=== PATIENT | male | born 1945 | race Caucasian/White ===

== ENCOUNTER 2018-11-28 12:54 | Inpatient (IN) | payer MEDICARE, MEDICAID ==
[~2018-11-28] VITALS: Ht 185.4 cm; Wt 96.7 kg
[2018-11-28 16:47] VITALS: BP 137/86
[2018-11-28] MEDS ORDERED: CARD120T4 PO (17:36)
[2018-11-28] MEDS ORDERED: TOPR50TA PO (17:36)
[2018-11-28] MEDS ORDERED: LEVO100T54 PO (17:36)
[2018-11-28] MEDS ORDERED: ASPI81CH33 PO (17:36)
[2018-11-28] MEDS ORDERED: METO5INJ15 IV (17:36)
[2018-11-28] MEDS ORDERED: FURO20VL IV (17:36)
[2018-11-28] MEDS ORDERED: [UNRECOGNIZED DRUG - CODE] IV (17:36)
[2018-11-28 17:48] LABS: BASO # 0.1 10^3/uL (0.0-0.2); BASO % 0.7 % (0.0-1.0); EOS # 0.1 10^3/uL (0.0-0.50); EOS % 1.1 % (0.0-3.0); HEMATOCRIT 41.4 % (42.0-52.0); HEMOGLOBIN 13.8 g/dl (13.5-17.5); LYMPH # 1.7 10^3/uL (1.5-4.5); LYMPH % 20.8 % (24.0-44.0); MEAN CORPUSCULAR HEMOGLOBIN 34.1 pg (27.0-33.0); MEAN CORPUSCULAR HGB CONC 33.3 g/dl (32.0-36.5); MEAN CORPUSCULAR VOLUME 102.2 fl (80.0-96.0); MONO # 1.1 10^3/uL (0.0-0.8); MONO % 13.8 % (0.0-5.0); NEUTROPHILS # 5.2 10^3/uL (1.8-7.7); NEUTROPHILS % 63.4 % (36.0-66.0); PLATELET COUNT, AUTOMATED 218 10^3/uL (150-450); RED BLOOD COUNT 4.05 10^6/uL (4.30-6.10); WHITE BLOOD COUNT 8.1 10^3/uL (4.0-10.0)
--- NOTE | 2018-11-28 17:57 | REP ---
HISTORY: Dyspnea. COMPARISON: None. The technique utilized in obtaining the radiograph has magnified the cardiac silhouette and accentuated the interstitial markings. There is global cardiomegaly. There are bilateral basilar opacities with costophrenic and cardiophrenic angle blunting. There is evidence of pulmonary vascular redistribution on this semi upright portable exam. The osseous structures are within normal limits. IMPRESSION: 1. Cardiomegaly accentuated by technique. 2. Bibasilar opacity suspicious for subsegmental atelectatic change/pneumonia/effusion. Correlate clinically. Obtain PA and lateral views of the chest. Electronically Signed by Osiel Brown DO 11/28/2018 06:25 P
[2018-11-28 18:00] VITALS: BP 137/86
[2018-11-28] MEDS: METOPROLOL TART 25 MG TABLET PO SCH ×2 (18:08→23:33)
[2018-11-28] MEDS ORDERED: LEVALBUTEROL 1.25 MG/0.5 ML CONCENTRATE NEB INH PRN (18:15)
--- NOTE | 2018-11-28 18:15 | HPEPDOC ---
General Date of Admission Nov 28, 2018 at 16:48 Date of Service: Nov 28, 2018 Chief Complaint The patient is a 73-year-old male who presented as a direct transfer from [facility] for A. fib with RVR. History of Present Illness Patient is a 73-year-old male with a PMHx of Emphysema and HTN who has not seen a physician in over 3-5 year. Patient has reported that he was expres sing shortness of breath for about 3 weeks duration. When his family had seen him, they strongly recommended that he go to the emergency room for further evaluation. Patient went to the emergency room, has found to be in A. fib with RVR as well as signs of fluid overload suspected to be from heart failure. Patient received IV medications at [facility], including Metoprolol IV x 4, Diltiazem x 1. And then was subsequently bridged with diltiazem and metoprolol by mouth. Patients heart rate had improved from a high of 173, down to 120. Upon arrival to [facility], patient still reports some shortness of breath. He denies any chest pain or palpitations. Patient has reported orthopnea and PND. . He has reported worsening lower extremity swelling for several weeks. Patient does report a cough, but denies any sputum production. Currently, patient does not experience any chest pain. However, he does report instances where he expresses chest pain with exertion. Patient has reported that when he exerts himself he experiences left-sided substernal chest pain described as crushing 9/10 in nature, aggravated with exertion and alleviated with relaxation and drinking cold water. Patient denies abdominal pain, constipation, diarrhea, or urinary discomfort. Denies any fevers or chills. Last 2 weeks. Patient has reported a weight increase from 160 pounds to 250 pounds over course of 2 years. Patient reports that his appetite is poor. Home Medications Scheduled Apixaban (Eliquis) 5 Mg Tablet, 5 MG PO BID Aspirin (Aspirin) 81 Mg Tab.chew, 324 MG PO ASDIRECTED, (Reported) RECEIVED AT [facility] Diltiazem HCl (Cardizem) 120 Mg Tablet, 240 MG PO ASDIRECTED, (Reported) RECEIVED AT [facility] Diltiazem HCl (Diltiazem HCl) 5 Mg/1 Ml Vial, 20 MG IV ASDIRECTED, (Reported) RECEIVED AT [facility] Furosemide (Furosemide) 10 Mg/1 Ml Vial, 40 MG IV ASDIRECTED, (Reported) RECEIVED AT [facility] TOTAL OF 2 DOSES Levothyroxine Sodium (Levoxyl) 100 Mcg Tablet, 100 MCG PO ASDIRECTED, (Reported) RECEIVED AT [facility] Metoprolol Succinate (Toprol Xl) 50 Mg Tab.er.24h, 50 MG PO ASDIRECTED, (Reported) RECEIVED AT [facility] Metoprolol Tartrate (Metoprolol Tartrate) 5 Mg/5 Ml Vial, 5 MG IV ASDIRECTED, (Reported) RECEIVED AT [facility] FOR A TOTAL FOR 3 DOSES Allergies Coded Allergies: No Known Allergies (Unverified , 11/28/18) Past Medical History Medical History Emphysema HTN Surgical History No reported surgeries in the past Family History - Mother with history of breast cancer - Father after a car accident Social History - Denies the use of illicit drugs; patient reports that he quit smoking and drinking 3 weeks ago but was a smoker of greater than 60 years at 2 packs a day; patient also reports excessive alcohol consumption a quart of dania curtis or 30-60 beers, over the course of a few days - Denies recent travel or sick contacts - Lives alone - 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; 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, 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, 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 Review of Systems Other systems 10 point review of systems complete, all negative otherwise stated in HPI Vital Signs - Vitals: BP 137/86, HR 130, RR 18, Sat 95%RA - General: Lying in bed, No acute distress, Speaking in full sentences, AAOx3 - HEENT: NC, AT, PERRL - CVS: IrIr, +S1S2 - Lungs: Decreased lung sounds at right lung base, no significant crackles can be appreciated - Abdomen: Soft, Non-distended, Non-tender, Obese - Extremities: 3+ pitting edema extending up to the mid-thigh, No calf tenderness - Neuro: No focal motor or sensory deficit - Skin: No visible rashes Laboratory Data Labs 24H Laboratory Tests 2 11/28/18 17:35: Immature Granulocyte % (Auto) 0.2, White Blood Count 8.1, Red Blood Count 4.05L, Hemoglobin 13.8, Hematocrit 41.4L, Mean Corpuscular Volume 102.2H, Mean C orpuscular Hemoglobin 34.1H, Mean Corpuscular Hemoglobin Concent 33.3, Red Cell Distribution Width 14.8H, Platelet Count 218, Neutrophils (%) (Auto) 63.4, Lymphocytes (%) (Auto) 20.8L, Monocytes (%) (Auto) 13.8H, Eosinophils (%) (Auto) 1.1, Basophils (%) (Auto) 0.7, Neutrophils # (Auto) 5.2, Lymphocytes # (Auto) 1.7, Monocytes # (Auto) 1.1H, Eosinophils # (Auto) 0.1, Basophils # (Auto) 0.1, Nucleated Red Blood Cells % (auto) 0.0 CBC/BMP Laboratory Tests 11/28/18 17:35 Red Blood Count 4.05 L, Mean Corpuscular Volume 102.2 H, Mean Corpuscular Hemoglobin 34.1 H, Mean Corpuscular Hemoglobin Concent 33.3, Red Cell Distribution Width 14.8 H, Neutrophils (%) (Auto) 63.4, Lymphocytes (%) (Auto) 20.8 L, Monocytes (%) (Auto) 13.8 H, Eosinophils (%) (Auto) 1.1, Basophils (%) (Auto) 0.7, Neutrophils # (Auto) 5.2, Lymphocytes # (Auto) 1.7, Monocytes # (Auto) 1.1 H, Eosinophils # (Auto) 0.1, Basophils # (Auto) 0.1 Microbiology Microbiology 11/28/18 Blood Culture, Received Pending Plan / VTE VTE Prophylaxis Ordered?: Yes Plan Plan A. fib with RVR - Patient denies any chest pain or palpitations - Currently, patients rate is about 120 to 130 - Troponin level checked at [facility] was negative; will repeat and continue to trend - EKG noted to be in A. fib - We will start patient on metoprolol tartrate 25 mg po q6h - Will start anticoagulation with Eliquis - c/w Telemetry monitoring Bilateral lower extremity edema - likely 2/2 congestive heart failure, less likely 2/2 DVT - Patient has reported associated symptoms of orthopnea and PND - Physical with significant lower extremity edema - Will get 2D-ECHO - Will get Duplex US of bilateral LE - c/w strict ins and outs, daily weights, head of bed elevation and fluid restrictions - Will start patient on net negative Lasix protocol for negative fluid balance of 1500cc CKD3 - Review of lab work from [facility] has revealed an elevation of creatinine approximately 1.5 - Patient has nausea, physician over 3-5 years; will continue to follow renal function - Will check renal ultrasound - At this point, will need to continue with diuretic therapy HTN - Patient blood pressure is moderately controlled - Will start the patient on metoprolol tartrate for rate control / BP control Emphysema - Patient was that he uses an inhaler as needed - Will start Xopenex PRN Failure to see a physician in 3-5 years - Will check A1c and lipid panel DVT prophylaxis - Will start full anticoagulation with RONALDO Domínguez MD Nov 28, 2018 18:15
[2018-11-28 18:23] LABS: ALBUMIN 3.3 GM/DL (3.2-5.2); ALT/SGPT 44 U/L (12-78); BILIRUBIN,TOTAL 0.8 MG/DL (0.2-1.0); BLOOD UREA NITROGEN 26 MG/DL (7-18); CALCIUM LEVEL 8.6 MG/DL (8.8-10.2); CARBON DIOXIDE LEVEL 22 MEQ/L (21-32); CHLORIDE LEVEL 106 MEQ/L (98-107); CK-MB VALUE MASS 2.4 NG/ML (<3.6); CPK CREATINE PHOSPHOKINASE 52 U/L (39-308); CREATININE FOR GFR 1.62 MG/DL (0.70-1.30); GLOMERULAR FILTRATION RATE 44.7 (>42); GLUCOSE, FASTING 110 MG/DL (70-100); MAGNESIUM LEVEL 1.9 MG/DL (1.8-2.4); MB/CK RELATIVE INDEX 4.62 (< OR =4); POTASSIUM SERUM 4.5 MEQ/L (3.5-5.1); SODIUM LEVEL 140 MEQ/L (136-145); TOTAL PROTEIN 6.4 GM/DL (6.4-8.2); TROPONIN I < 0.02 NG/ML (< 0.10)
[2018-11-28 18:29] LABS: FREE T4 1.27 NG/DL (0.76-1.46); THYROID STIMULATING HORMONE 10.5 uIU/ML (0.358-3.740); TOTAL T3 68.3 NG/DL (60.0-181.0)
[2018-11-28 18:47] LABS: CHOLESTEROL LEVEL 128 MG/DL (<200); CHOLESTEROL RISK RATIO 2.285 (<5); HDL CHOLESTEROL 56 MG/DL (>40); LDL CHOLESTEROL 55 MG/DL (<100); NON-HDL-C 72 MG/DL; TRIGLYCERIDES LEVEL 84 MG/DL (<150)
[2018-11-28] MEDS: FUROSEMIDE 40 MG/4 ML VIAL (J1940) IV SCH ×2 (18:53→23:32)
--- NOTE | 2018-11-28 19:15 | REP ---
HISTORY: Pain and swelling. TECHNIQUE: Multiple ultrasonographic images of the deep venous structures of the bilateral thighs were obtained from the common femoral vein to the popliteal vein along with Doppler interrogation and color flow Doppler images. FINDINGS: There is no abnormal echogenic material seen within any of the visualized deep venous structures that would suggest acute thrombosis. Coaptation is unremarkable throughout. Doppler interrogation shows an expected response to respiratory variability and augmentation. The color flow images show what appears to be a normal vascular pattern throughout. IMPRESSION: There is no ultrasonographic evidence of deep venous thrombosis involving any of the visualized deep venous structures of the bilateral thighs, as described above. Electronically Signed by Osiel Brown DO 11/28/2018 07:38 P
--- NOTE | 2018-11-28 19:18 | REP ---
HISTORY: Assess for hydronephrosis. COMPARISON: None. The right kidney measures 11.7 x 4.3 x 4.2 cm and the left measures 11.2 x 4.4 x 5.6 cm. There is slight bilateral renal cortical thinning with slightly increased renal cortical echoes, but good cortical medullary differentiation. There is no hydronephrosis on either side. There are no cystic or solid masses. The technologist has given a gross estimate of the size of the prostate gland by transvesical ultrasound. It measured 3 x 3.3 x 4.4 cm. This is a gross estimate and does not suffice for an exact measurement as a transrectal prostate evaluation would. The volume calculation from that measurement is 22.8 mL. The significance of this is uncertain. IMPRESSION: Slight renal changes suggesting early age-related change or medical renal disease. This needs to be correlated clinically. Electronically Signed by Osiel Brown DO 11/28/2018 07:38 P
[2018-11-28 20:00] VITALS: BP 132/69
[2018-11-28] MEDS: APIXABAN 5 MG TAB (ELIQUIS) PO SCH (20:14)
[2018-11-28 23:59] VITALS: BP 119/68
[2018-11-29 00:54] LABS: CK-MB VALUE MASS 2.9 NG/ML (<3.6); CPK CREATINE PHOSPHOKINASE 59 U/L (39-308); MB/CK RELATIVE INDEX 4.91 (< OR =4); TROPONIN I < 0.02 NG/ML (< 0.10)
[2018-11-29 02:08] LABS: APPEARANCE, URINE CLEAR (CLEAR); BACTERIA, URINE AUTO NEGATIVE (NEGATIVE); BILIRUBIN, URINE AUTO NEGATIVE (NEGATIVE); BLOOD, URINE BLOOD NEGATIVE (NEGATIVE); COLOR, URINE STRAW (YELLOW); GLUCOSE, URINE (UA) AUTO NEGATIVE (NEGATIVE); KETONE, URINE AUTO NEGATIVE (NEGATIVE); LEUKOCYTE ESTERASE, URINE AUTO NEGATIVE (NEGATIVE); NITRITE, URINE AUTO NEGATIVE (NEGATIVE); PROTEIN, URINE AUTO NEGATIVE (NEGATIVE); RBC, URINE AUTO 0 /HPF (0-3); SPECIFIC GRAVITY URINE AUTO 1.004 (1.002-1.035); SQUAMOUS EPITHELIAL CELL UR AU 0 /HPF (0-6); UROBILINOGEN, URINE AUTO 0.2 mg/dL (0.0-2.0); WBC, URINE AUTO 0 /HPF (0-3)
[2018-11-29 04:00] VITALS: BP 128/80
[2018-11-29] MEDS: METOPROLOL TART 25 MG TABLET PO SCH ×2 (05:38→13:24)
[2018-11-29 05:50] LABS: BASO # 0.1 10^3/uL (0.0-0.2); BASO % 0.9 % (0.0-1.0); EOS # 0.1 10^3/uL (0.0-0.50); EOS % 2.1 % (0.0-3.0); HEMATOCRIT 36.3 % (42.0-52.0); LYMPH # 1.4 10^3/uL (1.5-4.5); LYMPH % 24.4 % (24.0-44.0); MEAN CORPUSCULAR HEMOGLOBIN 32.8 pg (27.0-33.0); MEAN CORPUSCULAR HGB CONC 33.1 g/dl (32.0-36.5); MEAN CORPUSCULAR VOLUME 99.2 fl (80.0-96.0); MONO # 0.9 10^3/uL (0.0-0.8); MONO % 15.9 % (0.0-5.0); NEUTROPHILS # 3.2 10^3/uL (1.8-7.7); NEUTROPHILS % 56.3 % (36.0-66.0); PLATELET COUNT, AUTOMATED 181 10^3/uL (150-450); RED BLOOD COUNT 3.66 10^6/uL (4.30-6.10); WHITE BLOOD COUNT 5.7 10^3/uL (4.0-10.0)
[2018-11-29 06:18] LABS: CALCIUM LEVEL 8.1 MG/DL (8.8-10.2); CREATININE FOR GFR 1.42 MG/DL (0.70-1.30); MAGNESIUM LEVEL 1.7 MG/DL (1.8-2.4); MB/CK RELATIVE INDEX 5.66 (< OR =4); POTASSIUM SERUM 3.6 MEQ/L (3.5-5.1); TROPONIN I 0.02 NG/ML (< 0.10)
[2018-11-29 08:00] VITALS: BP 131/86
[2018-11-29] MEDS ORDERED: MAG SULF 1GM/100ML (MAG RUN) 1 GM in APPROPRIATE DILUENT 1 EA IV ONE (08:00)
[2018-11-29] MEDS ORDERED: POTASSIUM CHLORIDE 10 MEQ SR TABLET PO ONE (09:00)
[2018-11-29] MEDS: FUROSEMIDE 40 MG/4 ML VIAL (J1940) IV SCH ×3 (09:15→23:19)
[2018-11-29] MEDS: APIXABAN 5 MG TAB (ELIQUIS) PO SCH ×2 (09:18→20:11)
--- NOTE | 2018-11-29 10:30 | IPNPDOC ---
Text Note Date of Service The patient was seen on 11/29/18. NOTE Subjective: Patient is a 73-year-old male with a PMHx of Emphysema and HTN who has not seen a physician in over 3-5 year. Patient has reported that he was expressing shortness of breath for about 3 weeks duration. When his family had seen him, they strongly recommended that he go to the emergency room for further evaluation. Patient went to the emergency room, has found to be in A. fib with RVR as well as signs of fluid overload suspected to be from heart failure. Patient was transferred from [facility] to [facility] for further evaluation and treatment. Patient was seen and examined at the bedside. . Currently, patient reports that his lower extremity swelling has begun to improve. He denies chest pain or palpitations. Reports no significant change in his breathing. Denies nausea, vomiting, abdominal pain. The patient, diarrhea, or urinary discomfort. Objective: Vitals (See below) General: Lying in bed, no acute distress, comfortable, AAOx3 HEENT: NC, AT CVS: IrIr, +S1S2 Lungs: Decreased sounds at R base, no appreciable crackles Abdomen: Soft, ND, NT, +Obesity Extremities: 2+ edema bilaterally , - Calf tenderness Assessment and plan: A. fib s/p RVR - Patient denies any chest pain or palpitations - Currently, rate is better controlled - Troponin x3 have been negative - EKG noted to be in A. fib - c/w metoprolol tartrate 25 mg po q6h - c/w anticoagulation with Eliquis - c/w Telemetry monitoring Bilateral lower extremity edema - likely 2/2 congestive heart failure, less likely 2/2 DVT - Patient has reported associated symptoms of orthopnea and PND - Physical with significant lower extremity edema - 2D-ECHO Pending - Duplex US of bilateral LE 11/28: Negative for DVT - c/w strict ins and outs, daily weights, head of bed elevation and fluid restrictions of 1700 cc - c/w net negative Lasix protocol for negative fluid balance of 1500cc CKD3 / Elevated Cr - possibly 2/2 cardiorenal syndrome - Review of lab work from [facility] has revealed an elevation of creatinine approximately 1.5 - Cr has improved with diuresis - Patient has nausea, physician over 3-5 years; will continue to follow renal function - Renal ultrasound 11/28: cortical thinning noted, no evidence of hydronephrosis - c/w diuretic therapy s/p Elevated lactic acid - Likely 2/2 work of breathing, unlikely 2/2 sepsis - No fluids at this time 2/2 gross fluid overload HTN - Blood pressure has improved - Will start the patient on metoprolol tartrate for rate control / BP control Emphysema - Patient was that he uses an inhaler as needed - c/wt Xopenex PRN Hypomagnesemia - Will supplement Failure to see a physician in 3-5 years - A1c consistent with pre-diabetes - Lipid panel noted DVT prophylaxis - c/w full anticoagulation with Eliquis VS,Fishbone, I+O VS, Fishbone, I+O Laboratory Tests 11/28/18 17:35 Red Blood Count 4.05 L, Mean Corpuscular Volume 102.2 H, Mean Corpuscular Hemoglobin 34.1 H, Mean Corpuscular Hemoglobin Concent 33.3, Red Cell Distribution Width 14.8 H, Neutrophils (%) (Auto) 63.4, Lymphocytes (%) (Auto) 20.8 L, Monocytes (%) (Auto) 13.8 H, Eosinophils (%) (Auto) 1.1, Basophils (%) (Auto) 0.7, Neutrophils # (Auto) 5.2, Lymphocytes # (Auto) 1.7, Monocytes # (Auto) 1.1 H, Eosinophils # (Auto) 0.1, Basophils # (Auto) 0.1, Calcium Level 8.6 L, Aspartate Amino Transf (AST/SGOT) 62 H, Alanine Aminotransferase (ALT/SGPT) 44, Total Creatine Kinase 52, Alkaline Phosphatase 161 H, Total Bilirubin 0.8, Triglycerides Level 84, LDL Cholesterol 55, Total Protein 6.4, Albumin 3.3 11/29/18 04:58 Red Blood Count 3.66 L, Mean Corpuscular Volume 99.2 H, Mean Corpuscular Hemoglobin 32.8, Mean Corpuscular Hemoglobin Concent 33.1, Red Cell Distribution Width 14.6 H, Neutrophils (%) (Auto) 56.3, Lymphocytes (%) (Auto) 24.4, Monocytes (%) (Auto) 15.9 H, Eosinophils (%) (Auto) 2.1, Basophils (%) (Auto) 0.9, Neutrophils # (Auto) 3.2, Lymphocytes # (Auto) 1.4 L, Monocytes # (Auto) 0.9 H, Eosinophils # (Auto) 0.1, Basophils # (Auto) 0.1, Calcium Level 8.1 L, T otal Creatine Kinase 53 Vital Signs Date Time Temp Pulse Resp B/P (MAP) Pulse Ox O2 Delivery O2 Flow Rate FiO2 11/29/18 08:00 97.8 88 17 131/86 (101) 96 I&O- Last 24 Hours up to 6 AM 11/29/18 06:00 Intake Total 200 ml Output Total 4300 ml Balance -4100 ml RONALDO PARRY MD Nov 29, 2018 10:30
[2018-11-29 14:27] VITALS: BP 130/70
[2018-11-29 16:00] VITALS: BP 125/82
[2018-11-29] MEDS ORDERED: DIGOXIN 0.25 MG TAB PO ONE (17:00)
--- NOTE | 2018-11-29 17:00 | ECGEPIP ---
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
--- NOTE | 2018-11-29 17:07 | ECGEPIP ---
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
[2018-11-29] MEDS: METOPROLOL TART 50 MG TAB PO SCH ×2 (18:32→23:19)
[2018-11-29 20:00] VITALS: BP 140/68
[2018-11-29] MEDS: ENTRESTO 24-26MG TABLET (SACUBITRIL/VALSARTAN) PO SCH (20:11)
[2018-11-29 23:59] VITALS: BP 132/86
[2018-11-30 04:00] VITALS: BP 132/75
[2018-11-30 05:19] LABS: BASO # 0.1 10^3/uL (0.0-0.2); BASO % 1.4 % (0.0-1.0); EOS # 0.2 10^3/uL (0.0-0.50); EOS % 3.1 % (0.0-3.0); HEMATOCRIT 40.5 % (42.0-52.0); HEMOGLOBIN 13.4 g/dl (13.5-17.5); LYMPH # 1.4 10^3/uL (1.5-4.5); LYMPH % 25.7 % (24.0-44.0); MEAN CORPUSCULAR HEMOGLOBIN 32.9 pg (27.0-33.0); MEAN CORPUSCULAR HGB CONC 33.1 g/dl (32.0-36.5); MEAN CORPUSCULAR VOLUME 99.5 fl (80.0-96.0); MONO # 0.7 10^3/uL (0.0-0.8); MONO % 12.7 % (0.0-5.0); NEUTROPHILS # 3.1 10^3/uL (1.8-7.7); NEUTROPHILS % 56.7 % (36.0-66.0); PLATELET COUNT, AUTOMATED 203 10^3/uL (150-450); RED BLOOD COUNT 4.07 10^6/uL (4.30-6.10); WHITE BLOOD COUNT 5.5 10^3/uL (4.0-10.0)
[2018-11-30 05:32] LABS: INR 1.26; PROTHROMBIN TIME 15.5 SECONDS (11.8-14.0)
[2018-11-30] MEDS: METOPROLOL TART 50 MG TAB PO SCH ×4 (05:39→23:06)
[2018-11-30 05:42] LABS: CALCIUM LEVEL 8.4 MG/DL (8.8-10.2); CREATININE FOR GFR 1.43 MG/DL (0.70-1.30); GLOMERULAR FILTRATION RATE 51.6 (>42); MAGNESIUM LEVEL 1.9 MG/DL (1.8-2.4); POTASSIUM SERUM 3.7 MEQ/L (3.5-5.1)
--- NOTE | 2018-11-30 07:01 | ECHO ---
DATE OF STUDY: 11/29/2018 REFERRING PHYSICIAN: Dr. Tomeka García INDICATION: Atrial fibrillation, heart failure unspecified. HEIGHT: 185 cm. WEIGHT: 111 kg. DESCRIPTION: Rhythm was atrial fibrillation with rapid ventricular response. Image quality was fair. This was a 2D, M mode, color flow Doppler and pulse wave Doppler examination and included mitral annular tissue Doppler. 2D MEASUREMENTS: Aortic root 3.2 cm Left atrium 4.7 cm Left atrial volume index 44 Left ventricle diastole 6.4 cm Ventricular septum 0.95 cm Posterior wall 1.00 cm Inferior vena cava 3.0 cm DOPPLER MEASUREMENTS: Aortic valve velocity 196 cm/s LVOT velocity 55.4 cm/s LVOT VTI 10.4 cm No aortic regurgitation. Moderate mitral regurgitation. Moderate tricuspid regurgitation. Estimated right ventricle systolic pressure at least 38 mmHg assuming a right atrial pressure of at least 20 mmHg based on inferior vena cava dilatation with marked reduction of respiratory variation. CONCLUSIONS: 1. Mildly dilated left ventricle and diastole with normal LV wall thickness. Severe global LV hypokinesis and paradoxical septal motion. Severe reduction in overall LV systolic function. LVEF 20% by visual estimate. Unable to properly assess LV diastolic function in the setting of atrial fibrillation. 2. Mildly dilated right ventricle with severe reduction in RV systolic function and severe global hypokinesis of right ventricle contraction. Moderate right atrial dilatation. Prominent moderator band of the right ventricle. Structurally normal tricuspid leaflets with moderate tricuspid regurgitation. Suggestive of at least mild estimated right ventricle systolic pressure elevation. 3. Severe left atrial dilatation by left atrial volume index. 4. Inferior vena cava plethora with marked reduction of respiratory variation suggestive of a central venous pressure of at least 20 mmHg. 5. Mild mitral annular calcification. No mitral stenosis. Moderate mitral regurgitation. 6. Moderate aortic valve sclerosis of a three-cuspid aortic valve. No aortic stenosis or regurgitation. 7. Tiny pericardial effusion without diastolic chamber collapse. Results of this echocardiogram were communicated by telephone to Dr. Tomeka García.
[2018-11-30 08:39] LABS: DIGOXIN LEVEL 0.4 NG/ML (0.5-2.0)
[2018-11-30] MEDS: FUROSEMIDE 40 MG/4 ML VIAL (J1940) IV SCH ×3 (09:41→23:06)
[2018-11-30] MEDS: THIAMINE 100 MG TAB PO SCH ×2 (09:42→20:12)
[2018-11-30] MEDS: FOLIC ACID 1 MG TAB PO SCH (09:42)
[2018-11-30] MEDS: ENTRESTO 24-26MG TABLET (SACUBITRIL/VALSARTAN) PO SCH ×2 (09:42→20:12)
[2018-11-30] MEDS: SPIRONOLACTONE 25 MG TAB PO SCH (09:42)
[2018-11-30] MEDS: DIGOXIN 0.125 MG TAB PO SCH (09:43)
[2018-11-30] MEDS: APIXABAN 5 MG TAB (ELIQUIS) PO SCH ×2 (09:45→20:12)
[2018-11-30] MEDS ORDERED: DIGOXIN 0.125 MG TAB PO ONE (10:00)
--- NOTE | 2018-11-30 10:54 | IPNPDOC ---
Text Note Date of Service The patient was seen on 11/30/18. NOTE Subjective: Patient is a 73-year-old male with a PMHx of Emphysema and HTN who has not seen a physician in over 3-5 year. Patient has reported that he was expressing shortness of breath for about 3 weeks duration. When his family had seen him, they strongly recommended that he go to the emergency room for further evaluation. Patient went to the emergency room, has found to be in A. fib with RVR as well as signs of fluid overload suspected to be from heart failure. Patient was transferred from [facility] to [facility] for further evaluation and treatment. Patient was seen and examined at the bedside. Patient reports that his breathing is fine. Denies chest pain or palpitations. Reports that his lower extremities are doing better. Denies nausea, vomiting, abdominal pain, constipation, diarrhea, or urinary discomfort. Objective: Vitals (See below) General: Lying in bed, no acute distress, comfortable, AAOx3 HEENT: NC, AT CVS: IrIr, +S1S2 Lungs: Air entry appears to be fair bilaterally. No auscultated will rhonchi or rales Abdomen: Soft, ND, NT, +Obesity Extremities: 2+ edema bilaterally still persists, - Calf tenderness Assessment and plan: A. fib s/p RVR - Patient denies any chest pain or palpitations - Ray appears to be uncontrolled this morning; - Troponin x3 have been negative - EKG noted to be in A. fib - c/w metoprolol tartrate at 50 q6h - Digoxin added on 11/29/18; Digoxin level subtherapeutic will provide additional dose today - c/w anticoagulation with Eliquis - c/w Telemetry monitoring Bilateral lower extremity edema - likely 2/2 severe systolic congestive heart failure (EF of 20%) - possibly 2/2 cardiomyopathy - Patient has reported associated symptoms of orthopnea and PND - Physical with significant lower extremity edema - ECHO 11/30: EF 20%, unable to evaluate diastolic function, severe LA dilation, IVC pressure of 20mmHg, moderate MR, No or AR, tiny pericardial effusion - Duplex US of bilateral LE 11/28: Negative for DVT - c/w strict ins and outs, daily weights, head of bed elevation and fluid restrictions of 1700 cc - c/w net negative Lasix protocol for negative fluid balance of 1500cc; patient has been net negative of approximately 7 liters Cardiomyopathy - likely 2/2 dilated - 2/2 EtOH, possibly ischemic 2/2 CAD - Started Entresto, Spironolactone and Digoxin - c/w Metoprolol and Furosemide - Discussed with patient about need to cardiac catheterization / possible AICD placement; currently patient is hesitant to receive any interventions Episodes of NSVT - likely 2/2 cardiomyopathy - Mag levels appropriate - See above CKD3 / Elevated Cr - possibly 2/2 cardiorenal syndrome - Review of lab work from [facility] has revealed an elevation of creatinine approximately 1.5 - Cr has improved with diuresis - Patient has nausea, physician over 3-5 years; will continue to follow renal function - Renal ultrasound 11/28: cortical thinning noted, no evidence of hydronephrosis - c/w diuretic therapy s/p Elevated lactic acid - Likely 2/2 work of breathing, unlikely 2/2 sepsis - No fluids at this time 2/2 gross fluid overload HTN - Blood pressure has improved - c/w metoprolol tartrate, Entresto, Furosemide and Spironolactone Emphysema - Patient was that he uses an inhaler as needed - c/w Xopenex PRN s/p Hypomagnesemia Failure to see a physician in 3-5 years - A1c consistent with pre-diabetes - Lipid panel noted DVT prophylaxis - c/w full anticoagulation with Eliquis Code status: - Discussed code status with patient and need for cardiac intervention; patient reports that he will discuss with his niece about what to do - Currently patient is full code and also does not want any cardiac intervention; I have advised him to consider intervention or opt for DNR - Full code Disposition: - Will likely need cardiac intervention if he is agreeable Deepa ALVARADO, I+O VSDeepa, I+O Laboratory Tests 11/30/18 05:04 Red Blood Count 4.07 L, Mean Corpuscular Volume 99.5 H, Mean Corpuscular Hemoglobin 32.9, Mean Corpuscular Hemoglobin Concent 33.1, Red Cell Distribution Width 14.8 H, Neutrophils (%) (Auto) 56.7, Lymphocytes (%) (Auto) 25.7, Monocytes (%) (Auto) 12.7 H, Eosinophils (%) (Auto) 3.1 H, Basophils (%) (Auto) 1.4 H, Neutrophils # (Auto) 3.1, Lymphocytes # (Auto) 1.4 L, Monocytes # (Auto) 0.7, Eosinophils # (Auto) 0.2, Basophils # (Auto) 0.1, Calcium Level 8.4 L Vital Signs Date Time Temp Pulse Resp B/P (MAP) Pulse Ox O2 Delivery O2 Flow Rate FiO2 11/30/18 09:45 116 11/30/18 05:39 132/75 11/30/18 04:00 97.1 18 95 I&O- Last 24 Hours up to 6 AM 11/30/18 06:00 Intake Total 1050 ml Output Total 3550 ml Balance -2500 ml RONALDO PARRY MD Nov 30, 2018 10:42
[2018-11-30 11:54] VITALS: BP 113/74
[2018-11-30 15:59] VITALS: BP 146/88
[2018-11-30] MEDS: SENOKOT S TAB PO PRN (17:28)
[2018-11-30 20:00] VITALS: BP 108/59
[2018-11-30 23:59] VITALS: BP 112/64
[2018-12-01 04:00] VITALS: BP 119/56
[2018-12-01 05:45] LABS: BASO # 0.1 10^3/uL (0.0-0.2); BASO % 1.1 % (0.0-1.0); EOS # 0.2 10^3/uL (0.0-0.50); EOS % 3.6 % (0.0-3.0); HEMATOCRIT 43.2 % (42.0-52.0); HEMOGLOBIN 14.3 g/dl (13.5-17.5); LYMPH # 1.4 10^3/uL (1.5-4.5); LYMPH % 25.2 % (24.0-44.0); MEAN CORPUSCULAR HEMOGLOBIN 33.6 pg (27.0-33.0); MEAN CORPUSCULAR HGB CONC 33.1 g/dl (32.0-36.5); MEAN CORPUSCULAR VOLUME 101.6 fl (80.0-96.0); MONO # 0.8 10^3/uL (0.0-0.8); MONO % 14.6 % (0.0-5.0); NEUTROPHILS # 3.1 10^3/uL (1.8-7.7); NEUTROPHILS % 55.3 % (36.0-66.0); PLATELET COUNT, AUTOMATED 193 10^3/uL (150-450); RED BLOOD COUNT 4.25 10^6/uL (4.30-6.10); WHITE BLOOD COUNT 5.6 10^3/uL (4.0-10.0)
[2018-12-01] MEDS: METOPROLOL TART 50 MG TAB PO SCH ×3 (05:51→18:05)
[2018-12-01 05:54] LABS: INR 1.3; PROTHROMBIN TIME 15.9 SECONDS (11.8-14.0)
[2018-12-01 06:27] LABS: CALCIUM LEVEL 8.2 MG/DL (8.8-10.2); CREATININE FOR GFR 1.26 MG/DL (0.70-1.30); DIGOXIN LEVEL 0.6 NG/ML (0.5-2.0); GLOMERULAR FILTRATION RATE 59.7 (>42); MAGNESIUM LEVEL 1.7 MG/DL (1.8-2.4); POTASSIUM SERUM 3.7 MEQ/L (3.5-5.1)
[2018-12-01 08:00] VITALS: BP 124/82
[2018-12-01] MEDS ORDERED: MAG SULF 1GM/100ML (MAG RUN) 1 GM in APPROPRIATE DILUENT 1 EA IV ONE (08:00)
[2018-12-01] MEDS: FUROSEMIDE 40 MG/4 ML VIAL (J1940) IV SCH ×2 (08:00→16:00)
[2018-12-01] MEDS: THIAMINE 100 MG TAB PO SCH ×2 (08:10→20:28)
[2018-12-01] MEDS: FOLIC ACID 1 MG TAB PO SCH (08:11)
[2018-12-01] MEDS: SPIRONOLACTONE 25 MG TAB PO SCH (08:11)
[2018-12-01] MEDS: APIXABAN 5 MG TAB (ELIQUIS) PO SCH ×2 (08:12→20:28)
[2018-12-01] MEDS: DIGOXIN 0.125 MG TAB PO SCH (08:12)
[2018-12-01] MEDS: SENOKOT S TAB PO PRN (08:12)
[2018-12-01] MEDS: ENTRESTO 24-26MG TABLET (SACUBITRIL/VALSARTAN) PO SCH ×2 (08:12→20:28)
--- NOTE | 2018-12-01 09:34 | IPNPDOC ---
Text Note Date of Service The patient was seen on 12/01/18. NOTE Subjective: Patient is a 73-year-old male with a PMHx of Emphysema and HTN who has not seen a physician in over 3-5 year. Patient has reported that he was expressing shortness of breath for about 3 weeks duration. When his family had seen him, they strongly recommended that he go to the emergency room for further evaluation. Patient went to the emergency room, has found to be in A. fib with RVR as well as signs of fluid overload suspected to be from heart failure. Patient was transferred from [facility] to [facility] for further evaluation and treatment. Patient was seen and examined at the bedside. Patient reports that he continues to urinate significantly. Denies chest pain, shortness of breath or palpitations. Still reports difficulty lying flat on his back. Denies any nausea, vomiting, abdominal pain. Consultation diarrhea. Objective: Vitals (See below) General: Lying in bed, no acute distress, comfortable, AAOx3 HEENT: NC, AT CVS: IrIr, +S1S2 Lungs: There is fair entry of air bilaterally; no appreciable rhonchi, rales or wheezing upon auscultation Abdomen: Soft, ND, NT, +Obesity Extremities: Persistence of 2+ pitting edema bilaterally, - Calf tenderness Assessment and plan: A. fib s/p RVR - Patient denies any chest pain or palpitations - Rate is approaching optimization - Troponin x3 have been negative - EKG noted to be in A. fib - Digoxin level within appropriate range today - c/w metoprolol tartrate at 50 q6h; c/w Digoxin - c/w anticoagulation with Eliquis - c/w Telemetry monitoring Bilateral lower extremity edema - likely 2/2 severe systolic congestive heart failure (EF of 20%) - possibly 2/2 cardiomyopathy - Patient has reported associated symptoms of orthopnea and PND - There has been improved and lower malone edema. However, there still is significant signs of hypervolemia - ECHO 11/30: EF 20%, unable to evaluate diastolic function, severe LA dilation, IVC pressure of 20mmHg, moderate MR, No or AR, tiny pericardial effusion - Duplex US of bilateral LE 11/28: Negative for DVT - c/w strict ins and outs, daily weights, head of bed elevation and fluid restrictions of 1700 cc - c/w net negative Lasix protocol for negative fluid balance of 1500cc; patient has been net negative of approximately 9 liters Cardiomyopathy - likely 2/2 dilated - 2/2 EtOH, possibly ischemic 2/2 CAD - c/w Entresto, Spironolactone and Digoxin - c/w Metoprolol and Furosemide - Discussed with patient about need to cardiac catheterization / possible AICD placement - patient does not wish to pursue any intervention; he was well aware of risks and benefits were discussed - MOLST form has been updated to reflect DNR and DNI after discussion Episodes of NSVT - likely 2/2 cardiomyopathy - Mag levels appropriate - See above CKD3 / Elevated Cr - possibly 2/2 cardiorenal syndrome - Review of lab work from [facility] has revealed an elevation of creatinine approximately 1.5 - Cr has improved with diuresis - Patient has nausea, physician over 3-5 years; will continue to follow renal function - Renal ultrasound 11/28: cortical thinning noted, no evidence of hydronephrosis - c/w diuretic therapy s/p Elevated lactic acid - Likely 2/2 work of breathing, unlikely 2/2 sepsis - No fluids at this time 2/2 gross fluid overload HTN - Blood pressure has improved - c/w metoprolol tartrate, Entresto, Furosemide and Spironolactone Emphysema - Patient was that he uses an inhaler as needed - c/w Xopenex PRN Hypomagnesemia - Will supplement again today Failure to see a physician in 3-5 years - A1c consistent with pre-diabetes - Lipid panel noted DVT prophylaxis - c/w full anticoagulation with Eliquis Code status: - Updated MOLST form on 11/30 to reflect DNR / DNI - Does not want any cardiac intervention; including catheterization or AICD - DNR / DNI Disposition: -Will continue with medical optimization; anticipate discharge in 72 hours VS,Fishbone, I+O VS, Fishbone, I+O Laboratory Tests 12/01/18 05:28 Red Blood Count 4.25 L, Mean Corpuscular Volume 101.6 H, Mean Corpuscular Hemoglobin 33.6 H, Mean Corpuscular Hemoglobin Concent 33.1, Red Cell Distribution Width 14.6 H, Neutrophils (%) (Auto) 55.3, Lymphocytes (%) (Auto) 25.2, Monocytes (%) (Auto) 14.6 H, Eosinophils (%) (Auto) 3.6 H, Basophils (%) (Auto) 1.1 H, Neutrophils # (Auto) 3.1, Lymphocytes # (Auto) 1.4 L, Monocytes # (Auto) 0.8, Eosinophils # (Auto) 0.2, Basophils # (Auto) 0.1, Calcium Level 8.2 L Vital Signs Date Time Temp Pulse Resp B/P (MAP) Pulse Ox O2 Delivery O2 Flow Rate FiO2 12/01/18 08:12 101 12/01/18 08:00 97.4 20 124/82 (96) 98 I&O- Last 24 Hours up to 6 AM 12/01/18 06:00 Intake Total 1540 ml Output Total 4025 ml Balance -2485 ml RONALDO PARRY MD Dec 01, 2018 09:34
[2018-12-01] MEDS ORDERED: SLF 3 ML SYR IV PRN (11:00)
[2018-12-01 12:00] VITALS: BP 144/80
[2018-12-01] MEDS: SLF 3 ML SYR IV SCH ×2 (14:01→20:29)
[2018-12-01 16:00] VITALS: BP 127/78
[2018-12-01 20:00] VITALS: BP 122/83
[2018-12-01 23:59] VITALS: BP 127/90
[2018-12-02] MEDS: METOPROLOL TART 50 MG TAB PO SCH ×4 (00:09→17:13)
[2018-12-02] MEDS: FUROSEMIDE 40 MG/4 ML VIAL (J1940) IV SCH ×3 (00:09→16:00)
[2018-12-02 04:00] VITALS: BP 131/84
[2018-12-02] MEDS: SLF 3 ML SYR IV SCH ×3 (05:53→20:16)
[2018-12-02 05:55] LABS: BASO # 0.1 10^3/uL (0.0-0.2); BASO % 1.4 % (0.0-1.0); EOS # 0.2 10^3/uL (0.0-0.50); EOS % 3.5 % (0.0-3.0); HEMOGLOBIN 14.8 g/dl (13.5-17.5); LYMPH # 1.5 10^3/uL (1.5-4.5); LYMPH % 26.2 % (24.0-44.0); MEAN CORPUSCULAR HEMOGLOBIN 33.7 pg (27.0-33.0); MEAN CORPUSCULAR HGB CONC 32.9 g/dl (32.0-36.5); MEAN CORPUSCULAR VOLUME 102.5 fl (80.0-96.0); MONO # 0.8 10^3/uL (0.0-0.8); MONO % 14.1 % (0.0-5.0); NEUTROPHILS # 3.2 10^3/uL (1.8-7.7); NEUTROPHILS % 54.6 % (36.0-66.0); PLATELET COUNT, AUTOMATED 196 10^3/uL (150-450); RED BLOOD COUNT 4.39 10^6/uL (4.30-6.10); WHITE BLOOD COUNT 5.8 10^3/uL (4.0-10.0)
[2018-12-02 06:05] LABS: INR 1.19; PROTHROMBIN TIME 14.8 SECONDS (11.8-14.0)
[2018-12-02 06:32] LABS: CALCIUM LEVEL 8.7 MG/DL (8.8-10.2); CREATININE FOR GFR 1.28 MG/DL (0.70-1.30); GLOMERULAR FILTRATION RATE 58.6 (>42); MAGNESIUM LEVEL 2.1 MG/DL (1.8-2.4); POTASSIUM SERUM 4.6 MEQ/L (3.5-5.1)
[2018-12-02 07:45] VITALS: BP 130/82
[2018-12-02] MEDS: ENTRESTO 24-26MG TABLET (SACUBITRIL/VALSARTAN) PO SCH ×2 (08:33→20:16)
[2018-12-02] MEDS: SENOKOT S TAB PO PRN (08:33)
[2018-12-02] MEDS: SPIRONOLACTONE 25 MG TAB PO SCH (08:33)
[2018-12-02] MEDS: THIAMINE 100 MG TAB PO SCH ×2 (08:33→20:16)
[2018-12-02] MEDS: APIXABAN 5 MG TAB (ELIQUIS) PO SCH ×2 (08:33→20:16)
[2018-12-02] MEDS: FOLIC ACID 1 MG TAB PO SCH (08:33)
[2018-12-02] MEDS: DIGOXIN 0.125 MG TAB PO SCH (08:33)
[2018-12-02 11:36] VITALS: BP 142/60
--- NOTE | 2018-12-02 11:43 | IPNPDOC ---
Date Seen The patient was seen on 12/02/18. Progress Note SUBJECTIVE: Patient is a 73-year-old male with a PMHx of Emphysema and HTN who has not seen a physician in over 3-5 year. Patient has reported that he was expressing shortness of breath for about 3 weeks duration. When his family had seen him, they strongly recommended that he go to the emergency room for further evaluation. Patient went to the emergency room, has found to be in A. f ib with RVR as well as signs of fluid overload suspected to be from heart failure. Patient was transferred from [facility] to [facility] for further evaluation and treatment. Patient was seen on bedside this morning. He reports that he is feeling the same as yesterday. He reports continued b/l LE swelling that has improved since yesterday. He reports that he is continuing to urinate significantly. He still reports having a dry cough with no sputum production, sob on exertion, and orthopnea. He stated that he feels like he would benefit from an inhaler for his sob on exertion and orthopnea. He denies cp, palpitations, sob at rest, nausea, vomiting, abdominal pain, or dizziness. OBJECTIVE PHYSICAL EXAMINATION: VITAL SIGNS: Please see below. General: Lying in bed, no acute distress, comfortable, AAOx3 HEENT: NC, AT CVS: IrIr, +S1S2 Lungs: There is fair entry of air bilaterally; no appreciable rhonchi, rales or wheezing upon auscultation Abdomen: Soft, ND, NT, +Obesity Extremities: Persistence of 2+ pitting edema bilaterally - however improving , - Calf tenderness LABORATORY DATA, IMAGING STUDIES, MICROBIOLOGY: Please see below. IMAGING: CXR 11/28: 1. Cardiomegaly accentuated by technique. 2. Bibasilar opacity suspicious for subsegmental atelectatic change/pneumonia/effusion. Correlate clinically. Obtain PA and lateral views of the chest. Duplex Ultrasound Lower extremities b/l 11/28: There is no ultrasonographic evidence of deep venous thrombosis involving any of the visualized deep venous structures of the bilateral thighs, as described above. Renal Ultrasound 11/28: Slight renal changes suggesting early age-related change or medical renal disease. This needs to be correlated clinically. Echocardiogram 11/30: EF 20%, unable to evaluate diastolic function, severe LA dilation, IVC pressure of 20mmHg, moderate MR, No or AR, tiny pericardial effusion DVT prophylaxis ordered?: c/w full anticoagulation with Eliquis ASSESSMENT AND PLAN: This is a 73 year old male who presented with shortness of breath, fluid overload likely 2/2 to heart failure, and A. fib with RVR. PROBLEMS: A. fib s/p RVR - Patient denies any chest pain or palpitations - Rate is approaching optimization - Troponin x3 have been negative - EKG noted to be in A. fib - Digoxin level within appropriate range - c/w metoprolol tartrate at 50 q6h; c/w Digoxin - c/w anticoagulation with Eliquis - c/w Telemetry monitoring Bilateral lower extremity edema - likely 2/2 severe systolic congestive heart failure (EF of 20%) - possibly 2/2 cardiomyopathy - Patient has reported associated symptoms of orthopnea and PND - There has been improved and lower malone edema. However, there still is significant signs of hypervolemia - ECHO 11/30: EF 20%, unable to evaluate diastolic function, severe LA dilation, IVC pressure of 20mmHg, moderate MR, No or AR, tiny pericardial effusion - Duplex US of bilateral LE 11/28: Negative for DVT - c/w strict ins and outs, daily weights, head of bed elevation and fluid restrictions of 1700 cc - c/w net negative Lasix protocol for negative fluid balance of 1500cc; patient has been net negative of approximately 10.2 Liters Cardiomyopathy - likely 2/2 dilated - 2/2 EtOH, possibly ischemic 2/2 CAD - c/w Entresto, Spironolactone and Digoxin - c/w Metoprolol and Furosemide - Discussed with patient about need to cardiac catheterization / possible AICD placement - patient does not wish to pursue any intervention; he was well aware of risks and benefits were discussed - MOLST form has been updated to reflect DNR and DNI after discussion - Will discuss with cardiology to see if there are further recommendations for HR, BP, and A. fib management. Episodes of NSVT - likely 2/2 cardiomyopathy - Mag levels appropriate - See above CKD3 / Elevated Cr - possibly 2/2 cardiorenal syndrome - Review of lab work from [facility] and [facility] has revealed an elevation of creatinine approximately 1.5 - Cr has improved with diuresis - Patient has nausea, physician over 3-5 years; will continue to follow renal function - Renal ultrasound 11/28: cortical thinning noted, no evidence of hydronephrosis - c/w diuretic therapy s/p Elevated lactic acid - Likely 2/2 work of breathing, unlikely 2/2 sepsis - No fluids at this time 2/2 gross fluid overload HTN - Blood pressure has improved - c/w metoprolol tartrate, Entresto, Furosemide and Spironolactone Emphysema - Patient was that he uses an inhaler as needed - c/w Xopenex PRN Hypomagnesemia - Improved today after supplementation yesterday Failure to see a physician in 3-5 years - A1c consistent with pre-diabetes - Lipid panel noted DVT prophylaxis - c/w full anticoagulation with Eliquis Code status: - Updated MOLST form on 11/30 to reflect DNR / DNI - Does not want any cardiac intervention; including catheterization or AICD - DNR / DNI Disposition: -Will continue with medical optimization; anticipate discharge in 72 hours. C/w diuresis. Will discuss with cardiology to see if there are further recommendations for HR, BP, and A. fib management. Will work with physical therapy today. VS, I&O, 24H, [facility] Vital Signs/I&O Vital Signs Date Time Temp Pulse Resp B/P (MAP) Pulse Ox O2 Delivery O2 Flow Rate FiO2 12/02/18 08:33 110 12/02/18 07:45 97.5 18 130/82 (98) 97 I&O- Last 24 Hours up to 6 AM 12/02/18 06:00 Intake Total 1440 ml Output Total 3100 ml Balance -1660 ml Laboratory Data 24H LABS Laboratory Tests 2 12/02/18 05:30: Immature Granulocyte % (Auto) 0.2, White Blood Count 5.8, Red Blood Count 4.39, Hemoglobin 14.8, Hematocrit 45.0, Mean Corpuscular Volume 102.5H, Mean Corpuscular Hemoglobin 33.7H, Mean Corpuscular Hemoglobin Concent 32.9, Red Cell Distribution Width 14.6H, Platelet Count 196, Neutrophils (%) (Auto) 54.6, Lymphocytes (%) (Auto) 26.2, Monocytes (%) (Auto) 14.1H, Eosinophils (%) (Auto) 3.5H, Basophils (%) (Auto) 1.4H, Neutrophils # (Auto) 3.2, Lymphocytes # (Auto) 1.5, Monocytes # (Auto) 0.8, Eosinophils # (Auto) 0.2, Basophils # (Auto) 0.1, Nucleated Red Blood Cells % (auto) 0.0, Prothrombin Time 14.8H, Prothromb Time International Ratio 1.19, Anion Gap 5L, Glomerular Filtration Rate 58.6, Blood Urea Nitrogen 17, Creatinine 1.28, Sodium Level 143, Potassium Level 4.6#, Chloride Level 106, Carbon Dioxide Level 32, Calcium Level 8.7L, Magnesium Level 2.1 CBC/BMP Laboratory Tests 12/02/18 05:30 Red Blood Count 4.39, Mean Corpuscular Volume 102.5 H, Mean Corpuscular Hemoglobin 33.7 H, Mean Corpuscular Hemoglobin Concent 32.9, Red Cell Distribution Width 14.6 H, Neutrophils (%) (Auto) 54.6, Lymphocytes (%) (Auto) 26.2, Monocytes (%) (Auto) 14.1 H, Eosinophils (%) (Auto) 3.5 H, Basophils (%) (Auto) 1.4 H, Neutrophils # (Auto) 3.2, Lymphocytes # (Auto) 1.5, Monocytes # (Auto) 0.8, Eosinophils # (Auto) 0.2, Basophils # (Auto) 0.1, Calcium Level 8.7 L Microbiology Microbiology 11/28/18 Blood Culture - Preliminary, Resulted No Growth after 72 hours. All specime... 11/28/18 Blood Culture - Preliminary, Resulted No Growth after 72 hours. All specime... GME ATTESTATION GME ATTESTATION My faculty preceptor for this patient encounter was physically present during the encounter and was fully available. All aspects of the patient interview, examination, medical decision making process, and medical care plan development were reviewed and approved by the faculty preceptor. The faculty preceptor is aware and concurs with the plan as stated in the body of this note and will attest to such by his/her cosignature. ATTENDING NOTE I, Tomeka Parry, have independently examined this patient and performed my own physical exam, as well as reviewed the documentation and edited where necessary. I have discussed in detail with the resident / student the findings and plan of treatment as documented by the resident / student and edited their note. I agree with their findings and treatment plan and have edited their documentation. I will continue to follow the patient during this hospital stay. MARCIA TYSON-3 Dec 02, 2018 11:43 TOMEKA PARRY MD Dec 02, 2018 12:10
[2018-12-02] MEDS ORDERED: DIGOXIN 0.25 MG TAB PO ONE (13:00)
[2018-12-02 16:35] VITALS: BP 156/98
[2018-12-02 20:00] VITALS: BP 120/75
[2018-12-02 23:59] VITALS: BP 136/76
[2018-12-03] MEDS: METOPROLOL TART 50 MG TAB PO SCH (00:12)
[2018-12-03] MEDS: FUROSEMIDE 40 MG/4 ML VIAL (J1940) IV SCH ×4 (00:12→23:16)
[2018-12-03 04:00] VITALS: BP 121/86
[2018-12-03 05:21] LABS: BASO # 0.1 10^3/uL (0.0-0.2); BASO % 1.5 % (0.0-1.0); EOS # 0.2 10^3/uL (0.0-0.50); EOS % 3.8 % (0.0-3.0); HEMATOCRIT 45.5 % (42.0-52.0); HEMOGLOBIN 14.9 g/dl (13.5-17.5); LYMPH # 1.4 10^3/uL (1.5-4.5); LYMPH % 26.2 % (24.0-44.0); MEAN CORPUSCULAR HEMOGLOBIN 32.7 pg (27.0-33.0); MEAN CORPUSCULAR HGB CONC 32.7 g/dl (32.0-36.5); MEAN CORPUSCULAR VOLUME 99.8 fl (80.0-96.0); MONO # 0.7 10^3/uL (0.0-0.8); MONO % 13.4 % (0.0-5.0); NEUTROPHILS # 2.9 10^3/uL (1.8-7.7); NEUTROPHILS % 54.9 % (36.0-66.0); PLATELET COUNT, AUTOMATED 202 10^3/uL (150-450); RED BLOOD COUNT 4.56 10^6/uL (4.30-6.10); WHITE BLOOD COUNT 5.3 10^3/uL (4.0-10.0)
[2018-12-03 05:30] LABS: INR 1.21
[2018-12-03 05:53] LABS: CALCIUM LEVEL 8.6 MG/DL (8.8-10.2); CREATININE FOR GFR 1.29 MG/DL (0.70-1.30); DIGOXIN LEVEL 0.9 NG/ML (0.5-2.0); GLOMERULAR FILTRATION RATE 58.1 (>42); MAGNESIUM LEVEL 2.1 MG/DL (1.8-2.4); POTASSIUM SERUM 4.5 MEQ/L (3.5-5.1)
[2018-12-03 08:00] VITALS: BP 137/57
[2018-12-03] MEDS: APIXABAN 5 MG TAB (ELIQUIS) PO SCH ×2 (09:47→20:35)
[2018-12-03] MEDS: ENTRESTO 24-26MG TABLET (SACUBITRIL/VALSARTAN) PO SCH ×2 (09:47→20:35)
[2018-12-03] MEDS: FOLIC ACID 1 MG TAB PO SCH (09:48)
[2018-12-03] MEDS: THIAMINE 100 MG TAB PO SCH ×2 (09:48→20:34)
[2018-12-03] MEDS: SPIRONOLACTONE 25 MG TAB PO SCH (09:48)
[2018-12-03] MEDS: DIGOXIN 0.25 MG TAB PO SCH (09:49)
[2018-12-03] MEDS: SLF 3 ML SYR IV SCH ×3 (09:53→20:35)
[2018-12-03] MEDS: METOPROLOL SUCC (TopROL XL) 100MG *XL* TAB PO SCH ×2 (10:33→20:35)
--- NOTE | 2018-12-03 10:47 | IPNPDOC ---
Text Note Date of Service The patient was seen on 12/03/18. NOTE Subjective: Patient is a 73-year-old male with a PMHx of Emphysema and HTN who has not seen a physician in over 3-5 year. Patient has reported that he was expressing shortness of breath for about 3 weeks duration. When his family had seen him, they strongly recommended that he go to the emergency room for further evaluation. Patient went to the emergency room, has found to be in A. fib with RVR as well as signs of fluid overload suspected to be from heart failure. Patient was transferred from [facility] to [facility] for further evaluation and treatment. Patient was seen and examined at the bedside. Patient again reports that he continues to have an adequate amount of urine output. Denies any chest pain, palpitations or shortness of breath. Has been working with physical therapy. He denies any nausea, vomiting, abdominal pain, constipation, diarrhea, or urinary discomfort. Objective: Vitals (See below) General: Lying in bed, no acute distress, comfortable, AAOx3 HEENT: NC, AT CVS: IrIr, +S1S2 Lungs: Air entry is fair on both lung hair without auscultated rhonchi, rales or wheezing Abdomen: Soft, nondistended, nontender, +Obesity Extremities: Lower extremity edema appears to be improving, however, still remains at 1-2+, - Calf tenderness Assessment and plan: A. fib s/p RVR - Patient denies any chest pain or palpitations - Rate continues to fluctuate between 100-120 - Troponin x3 have been negative - EKG noted to be in A. fib - Digoxin level remains adequate - c/w metoprolol succinate at 100 q12h; c/w Digoxin 250 mcg daily - c/w anticoagulation with Eliquis - c/w Telemetry monitoring Bilateral lower extremity edema - likely 2/2 severe systolic congestive heart failure (EF of 20%) - possibly 2/2 cardiomyopathy - Patient has reported associated symptoms of orthopnea and PND - Lotion or edema continues to improve - ECHO 11/30: EF 20%, unable to evaluate diastolic function, severe LA dilation, IVC pressure of 20mmHg, moderate MR, No or AR, tiny pericardial effusion - Duplex US of bilateral LE 11/28: Negative for DVT - c/w strict ins and outs, daily weights, head of bed elevation and fluid restrictions of 1700 cc - c/w net negative Lasix protocol for negative fluid balance of 1500cc; patient has been net negative of approximately 12 liters Cardiomyopathy - likely 2/2 dilated - 2/2 EtOH, possibly ischemic 2/2 CAD - c/w Entresto, Spironolactone and Digoxin - c/w Metoprolol and Furosemide - Discussed with patient about need to cardiac catheterization / possible AICD placement - patient does not wish to pursue any intervention; he was well aware of risks and benefits were discussed - MOLST form has been updated to reflect DNR and DNI after discussion Episodes of NSVT - likely 2/2 cardiomyopathy - Mag levels appropriate - See above CKD3 / Elevated Cr - possibly 2/2 cardiorenal syndrome - Review of lab work from [facility] has revealed an elevation of creatinine approximately 1.5 - Cr has improved with diuresis - Patient has nausea, physician over 3-5 years; will continue to follow renal function - Renal ultrasound 11/28: cortical thinning noted, no evidence of hydronephrosis - c/w diuretic therapy s/p Elevated lactic acid - Likely 2/2 work of breathing, unlikely 2/2 sepsis - No fluids at this time 2/2 gross fluid overload HTN - Blood pressure has improved - c/w metoprolol tartrate, Entresto, Furosemide and Spironolactone Emphysema - Patient was that he uses an inhaler as needed - c/w Xopenex PRN Hypomagnesemia - Will supplement again today Failure to see a physician in 3-5 years - A1c consistent with pre-diabetes - Lipid panel noted DVT prophylaxis - c/w full anticoagulation with Eliquis Code status: - Updated MOLST form on 11/30 to reflect DNR / DNI - Does not want any cardiac intervention; including catheterization or AICD - DNR / DNI Disposition: -Will continue with medical optimization VS,Carlose, I+O VS, Fishbone, I+O Laboratory Tests 12/03/18 05:06 Red Blood Count 4.56, Mean Corpuscular Volume 99.8 H, Mean Corpuscular Hemoglobin 32.7, Mean Corpuscular Hemoglobin Concent 32.7, Red Cell Distribution Width 14.6 H, Neutrophils (%) (Auto) 54.9, Lymphocytes (%) (Auto) 26.2, Monocytes (%) (Auto) 13.4 H, Eosinophils (%) (Auto) 3.8 H, Basophils (%) (Auto) 1.5 H, Neutrophils # (Auto) 2.9, Lymphocytes # (Auto) 1.4 L, Monocytes # (Auto) 0.7, Eosinophils # (Auto) 0.2, Basophils # (Auto) 0.1, Calcium Level 8.6 L Vital Signs Date Time Temp Pulse Resp B/P (MAP) Pulse Ox O2 Delivery O2 Flow Rate FiO2 12/03/18 10:33 95 114/56 12/03/18 08:00 97.0 17 95 I&O- Last 24 Hours up to 6 AM 12/03/18 05:59 Intake Total 1020 ml Output Total 3100 ml Balance -2080 ml RONALDO PARRY MD Dec 03, 2018 10:47
[2018-12-03 11:56] VITALS: BP 146/78
[2018-12-03 16:00] VITALS: BP 129/82
[2018-12-03] MEDS: SENOKOT S TAB PO PRN (17:08)
[2018-12-03 20:00] VITALS: BP 110/56
[2018-12-03 23:59] VITALS: BP 124/91
[2018-12-04 04:00] VITALS: BP 128/79
[2018-12-04] MEDS: SLF 3 ML SYR IV SCH ×3 (05:58→20:09)
[2018-12-04 06:20] LABS: BASO # 0.1 10^3/uL (0.0-0.2); BASO % 1.6 % (0.0-1.0); EOS # 0.2 10^3/uL (0.0-0.50); EOS % 3.7 % (0.0-3.0); HEMATOCRIT 47.8 % (42.0-52.0); HEMOGLOBIN 15.7 g/dl (13.5-17.5); LYMPH % 31.7 % (24.0-44.0); MEAN CORPUSCULAR HEMOGLOBIN 32.4 pg (27.0-33.0); MEAN CORPUSCULAR HGB CONC 32.8 g/dl (32.0-36.5); MEAN CORPUSCULAR VOLUME 98.6 fl (80.0-96.0); MONO # 0.6 10^3/uL (0.0-0.8); MONO % 9.6 % (0.0-5.0); NEUTROPHILS # 3.3 10^3/uL (1.8-7.7); NEUTROPHILS % 53.4 % (36.0-66.0); PLATELET COUNT, AUTOMATED 220 10^3/uL (150-450); RED BLOOD COUNT 4.85 10^6/uL (4.30-6.10); WHITE BLOOD COUNT 6.2 10^3/uL (4.0-10.0)
[2018-12-04 06:31] LABS: INR 1.18; PROTHROMBIN TIME 14.7 SECONDS (11.8-14.0)
[2018-12-04 06:45] LABS: CALCIUM LEVEL 8.9 MG/DL (8.8-10.2); CREATININE FOR GFR 1.4 MG/DL (0.70-1.30); GLOMERULAR FILTRATION RATE 52.9 (>42); MAGNESIUM LEVEL 2.4 MG/DL (1.8-2.4); POTASSIUM SERUM 4.3 MEQ/L (3.5-5.1)
[2018-12-04 08:00] VITALS: BP 138/71
[2018-12-04] MEDS: APIXABAN 5 MG TAB (ELIQUIS) PO SCH ×2 (10:26→20:09)
[2018-12-04] MEDS: DIGOXIN 0.25 MG TAB PO SCH (10:26)
[2018-12-04] MEDS: FUROSEMIDE 40 MG/4 ML VIAL (J1940) IV SCH ×2 (10:26→16:48)
[2018-12-04] MEDS: FOLIC ACID 1 MG TAB PO SCH (10:27)
[2018-12-04] MEDS: THIAMINE 100 MG TAB PO SCH ×2 (10:27→20:09)
[2018-12-04] MEDS: ENTRESTO 24-26MG TABLET (SACUBITRIL/VALSARTAN) PO SCH ×2 (10:27→20:09)
[2018-12-04] MEDS: SPIRONOLACTONE 25 MG TAB PO SCH (10:27)
[2018-12-04] MEDS: METOPROLOL SUCC (TopROL XL) 100MG *XL* TAB PO SCH ×2 (10:32→20:10)
--- NOTE | 2018-12-04 11:46 | IPNPDOC ---
Subjective Date Seen The patient was seen on 12/04/18. Subjective Chief Complaint/HPI Patient seen and examined at the bedside. Reports that his lower extremity swelling is improving. He notes that he was able to work with physical therapy yesterday, and continues to steadily improve. Objective Physical Examination General Exam: Positive: Alert, Cooperative, No Acute Distress ENT Exam: Positive: Atraumatic, Mucous membr. moist/pink Chest Exam: Positive: Diminished; Negative: Rales, Wheezing Heart Exam: Positive: Rate Normal, Normal S1, Normal S2 Abdomen Exam: Positive: Soft; Negative: Tenderness Extremity Exam: Positive: Swelling (2+ pitting edema in the LE B/L); Negative: Tenderness Psych Exam: Positive: Oriented x 3 Assessment /Plan Plan/VTE VTE Prophylaxis Ordered?: Yes Plan Decompensated systolic congestive heart failure (EF of 20%) - possibly 2/2 cardiomyopathy from underlying uncontrolled A-fib, alcohol use ECHO 11/30: EF 20%, unable to evaluate diastolic function, severe LA dilation, IVC pressure of 20mmHg, moderate MR, No or AR, tiny pericardial effusion Duplex US of bilateral LE 11/28: Negative for DVT Cont strict ins and outs, daily weights, head of bed elevation and fluid restrictions of 1700 cc Cont Lasix with net negative protocol A. fib s/p RVR Cont metoprolol succinate at 100 q12h; c/w Digoxin 250 mcg daily Anticoagulation with Eliquis Telemetry monitoring Cardiomyopathy - likely 2/2 dilated - 2/2 EtOH, uncontrolled A-Fib, possibly ischemic 2/2 CAD Cont Metoprolol, Lasix, Entresto, Spironolactone and Digoxin Patient has declined cardiac catheterization / possible AICD placement - patient does not wish to pursue any intervention; risks, benefits, and alternative options discussed at length with the patient. He has verbalized understanding of the same, and does not want any further medical therapy aside from the aforementioned. CKD3 / Elevated Cr - possibly 2/2 cardiorenal syndrome Unknown baseline serum Cr Renal ultrasound 11/28: cortical thinning noted, no evidence of hydronephrosis Cont diuretic therapy as ordered HTN Metoprolol tartrate, Entresto, Furosemide and Spironolactone Emphysema Xopenex PRN Failure to see a physician in 3-5 years A1c consistent with pre-diabetes Lipid panel noted DVT prophylaxis On Eliquis Code status: DNR / DNI Disposition: Will continue with medical optimization VS, I&O, 24H, [facility] Vital Signs/I&O Vital Signs Date Time Temp Pulse Resp B/P (MAP) Pulse Ox O2 Delivery O2 Flow Rate FiO2 12/04/18 10:32 99 138/78 12/04/18 08:00 98.6 18 97 I&O- Last 24 Hours up to 6 AM 12/04/18 06:00 Intake Total 1410 ml Output Total 5025 ml Balance -3615 ml Laboratory Data 24H LABS Laboratory Tests 2 12/04/18 05:58: Immature Granulocyte % (Auto) 0.0, White Blood Count 6.2, Red Blood Count 4.85, Hemoglobin 15.7, Hematocrit 47.8, Mean Corpuscular Volume 98.6H, Mean Corpuscular Hemoglobin 32.4, Mean Corpuscular Hemoglobin Concent 32.8, Red Cell Distribution Width 14.6H, Platelet Count 220, Neutrophils (%) (Auto) 53.4, Ly mphocytes (%) (Auto) 31.7, Monocytes (%) (Auto) 9.6H, Eosinophils (%) (Auto) 3.7H, Basophils (%) (Auto) 1.6H, Neutrophils # (Auto) 3.3, Lymphocytes # (Auto) 2.0, Monocytes # (Auto) 0.6, Eosinophils # (Auto) 0.2, Basophils # (Auto) 0.1, Nucleated Red Blood Cells % (auto) 0.0, Prothrombin Time 14.7H, Prothromb Time International Ratio 1.18, Anion Gap 6L, Glomerular Filtration Rate 52.9, Blood Urea Nitrogen 15, Creatinine 1.40H, Sodium Level 142, Potassium Level 4.3, Chloride Level 105, Carbon Dioxide Level 31, Calcium Level 8.9, Magnesium Level 2.4 CBC/BMP Laboratory Tests 12/04/18 05:58 Red Blood Count 4.85, Mean Corpuscular Volume 98.6 H, Mean Corpuscular Hemoglobin 32.4, Mean Corpuscular Hemoglobin Concent 32.8, Red Cell Distribution Width 14.6 H, Neutrophils (%) (Auto) 53.4, Lymphocytes (%) (Auto) 31.7, Monocytes (%) (Auto) 9.6 H, Eosinophils (%) (Auto) 3.7 H, Basophils (%) (Auto) 1.6 H, Neutrophils # (Auto) 3.3, Lymphocytes # (Auto) 2.0, Monocytes # (Auto) 0.6, Eosinophils # (Auto) 0.2, Basophils # (Auto) 0.1, Calcium Level 8.9 Microbiology Microbiology 11/28/18 Blood Culture - Final, Complete NO GROWTH AFTER 5 DAYS 11/28/18 Blood Culture - Final, Complete NO GROWTH AFTER 5 DAYS KENNEDY BROOKS MD Dec 04, 2018 11:46
[2018-12-04 12:00] VITALS: BP 135/89
[2018-12-04 16:00] VITALS: BP 123/79
[2018-12-04 20:00] VITALS: BP 148/70
[2018-12-05] VITALS: BP 150/74
[2018-12-05] MEDS: FUROSEMIDE 40 MG/4 ML VIAL (J1940) IV SCH ×2 (00:20→07:57)
[2018-12-05 04:00] VITALS: BP 118/67
[2018-12-05] MEDS: SLF 3 ML SYR IV SCH ×3 (05:46→21:49)
[2018-12-05 06:31] LABS: BASO # 0.1 10^3/uL (0.0-0.2); BASO % 1.7 % (0.0-1.0); EOS # 0.2 10^3/uL (0.0-0.50); EOS % 3.1 % (0.0-3.0); HEMATOCRIT 47.5 % (42.0-52.0); HEMOGLOBIN 15.7 g/dl (13.5-17.5); LYMPH # 1.5 10^3/uL (1.5-4.5); LYMPH % 25.3 % (24.0-44.0); MEAN CORPUSCULAR HEMOGLOBIN 32.9 pg (27.0-33.0); MEAN CORPUSCULAR HGB CONC 33.1 g/dl (32.0-36.5); MEAN CORPUSCULAR VOLUME 99.6 fl (80.0-96.0); MONO # 0.6 10^3/uL (0.0-0.8); MONO % 11.2 % (0.0-5.0); NEUTROPHILS # 3.3 10^3/uL (1.8-7.7); NEUTROPHILS % 58.4 % (36.0-66.0); PLATELET COUNT, AUTOMATED 168 10^3/uL (150-450); RED BLOOD COUNT 4.77 10^6/uL (4.30-6.10); WHITE BLOOD COUNT 5.7 10^3/uL (4.0-10.0)
[2018-12-05 06:43] LABS: INR 1.12; PROTHROMBIN TIME 14.1 SECONDS (11.8-14.0)
[2018-12-05 07:00] LABS: CALCIUM LEVEL 8.9 MG/DL (8.8-10.2); CREATININE FOR GFR 1.39 MG/DL (0.70-1.30); GLOMERULAR FILTRATION RATE 53.3 (>42); MAGNESIUM LEVEL 2.4 MG/DL (1.8-2.4)
[2018-12-05 07:53] VITALS: BP 99/68
[2018-12-05] MEDS: FOLIC ACID 1 MG TAB PO SCH (07:55)
[2018-12-05] MEDS: DIGOXIN 0.25 MG TAB PO SCH (07:55)
[2018-12-05] MEDS: APIXABAN 5 MG TAB (ELIQUIS) PO SCH ×2 (07:55→21:26)
[2018-12-05] MEDS: THIAMINE 100 MG TAB PO SCH ×2 (07:55→21:26)
[2018-12-05] MEDS: SPIRONOLACTONE 25 MG TAB PO SCH (07:57)
[2018-12-05] MEDS: ENTRESTO 24-26MG TABLET (SACUBITRIL/VALSARTAN) PO SCH ×2 (07:57→21:00)
[2018-12-05] MEDS: METOPROLOL SUCC (TopROL XL) 100MG *XL* TAB PO SCH ×2 (07:57→21:00)
[2018-12-05] MEDS: FUROSEMIDE 40 MG TAB PO SCH (09:00)
[2018-12-05] MEDS ORDERED: ELIQ5TAB PO (10:23)
--- NOTE | 2018-12-05 11:05 | IPNPDOC ---
Subjective Date Seen The patient was seen on 12/05/18. Subjective Chief Complaint/HPI Patient seen and examined at the bedside. Reports continued improvement of his shortness of breath, and lower extremity swelling. Denies any acute complaints of chest pain, palpitations at this time. Objective Physical Examination General Exam: Positive: Alert, Cooperative, No Acute Distress ENT Exam: Positive: Atraumatic, Mucous membr. moist/pink Chest Exam: Positive: Diminished; Negative: Rales, Wheezing Heart Exam: Positive: Rate Normal, Normal S1, Normal S2 Abdomen Exam: Positive: Soft; Negative: Tenderness Extremity Exam: Positive: Swelling (1+ pitting edema in the LE B/L); Negative: Tenderness Psych Exam: Positive: Oriented x 3 Assessment /Plan Plan/VTE VTE Prophylaxis Ordered?: Yes Plan Decompensated systolic congestive heart failure (EF of 20%) - possibly 2/2 cardiomyopathy from underlying uncontrolled A-fib, alcohol use ECHO 11/30: EF 20%, unable to evaluate diastolic function, severe LA dilation, IVC pressure of 20mmHg, moderate MR, No or AR, tiny pericardial effusion Duplex US of bilateral LE 11/28: Negative for DVT Cont strict ins and outs, daily weights, head of bed elevation and fluid restrictions of 1700 cc Cont Lasix with net negative protocol, Spironolactone, Entresto, Metoprolol A. fib s/p RVR Cont metoprolol succinate at 100 q12h; c/w Digoxin 250 mcg daily Anticoagulation with Eliquis Telemetry monitoring Cardiomyopathy - likely 2/2 dilated - 2/2 EtOH, uncontrolled A-Fib, possibly ischemic 2/2 CAD Cont Metoprolol, Lasix, Entresto, Spironolactone and Digoxin Patient has declined cardiac catheterization / possible AICD placement - patient does not wish to pursue any intervention; risks, benefits, and alternative options discussed at length with the patient. He has verbalized understanding of the same, and does not want any further medical therapy aside from the aforementioned. CKD3 / Elevated Cr - possibly 2/2 cardiorenal syndrome Unknown baseline serum Cr Renal ultrasound 11/28: cortical thinning noted, no evidence of hydronephrosis Cont diuretic therapy as ordered HTN Metoprolol tartrate, Entresto, Furosemide and Spironolactone Emphysema Xopenex PRN Failure to see a physician in 3-5 years A1c consistent with pre-diabetes Lipid panel noted DVT prophylaxis On Eliquis Code status: DNR / DNI Disposition: Will continue with medical optimization VS, I&O, 24H, [facility] Vital Signs/I&O Vital Signs Date Time Temp Pulse Resp B/P (MAP) Pulse Ox O2 Delivery O2 Flow Rate FiO2 12/05/18 07:57 89 99/68 12/05/18 07:53 97.1 18 95 I&O- Last 24 Hours up to 6 AM 12/05/18 06:00 Intake Total 1500 ml Output Total 3825 ml Balance -2325 ml Laboratory Data 24H LABS Laboratory Tests 2 12/05/18 05:57: Immature Granulocyte % (Auto) 0.3, White Blood Count 5.7, Red Blood Count 4.77, Hemoglobin 15.7, Hematocrit 47.5, Mean Corpuscular Volume 99.6H, Mean Corpuscular Hemoglobin 32.9, Mean Corpuscular Hemoglobin Concent 33.1, Red Cell Distribution Width 14.5, Platelet Count 168, Neutrophils (%) (Auto) 58.4, Lymphocytes (%) (Auto) 25.3, Monocytes (%) (Auto) 11.2H, Eosinophils (%) (Auto) 3.1H, Basophils (%) (Auto) 1.7H, Neutrophils # (Auto) 3.3, Lymphocytes # (Auto) 1.5, Monocytes # (Auto) 0.6, Eosinophils # (Auto) 0.2, Basophils # (Auto) 0.1, Nucleated Red Blood Cells % (auto) 0.0, Prothrombin Time 14.1H, Prothromb Time International Ratio 1.12, Anion Gap 6L, Glomerular Filtration Rate 53.3, Blood Urea Nitrogen 20H, Creatinine 1.39H, Sodium Level 139, Potassium Level 4.0, Chloride Level 101, Carbon Dioxide Level 32, Calcium Level 8.9, Magnesium Level 2.4 CBC/BMP Laboratory Tests 12/05/18 05:57 Red Blood Count 4.77, Mean Corpuscular Volume 99.6 H, Mean Corpuscular Hemoglobin 32.9, Mean Corpuscular Hemoglobin Concent 33.1, Red Cell Distribution Width 14.5, Neutrophils (%) (Auto) 58.4, Lymphocytes (%) (Auto) 25.3, Monocytes (%) (Auto) 11.2 H, Eosinophils (%) (Auto) 3.1 H, Basophils (%) (Auto) 1.7 H, Neutrophils # (Auto) 3.3, Lymphocytes # (Auto) 1.5, Monocytes # (Auto) 0.6, Eosinophils # (Auto) 0.2, Basophils # (Auto) 0.1, Calcium Level 8.9 Microbiology Microbiology 11/28/18 Blood Culture - Final, Complete NO GROWTH AFTER 5 DAYS 11/28/18 Blood Culture - Final, Complete NO GROWTH AFTER 5 DAYS KENNEDY BROOKS MD Dec 05, 2018 11:05
[2018-12-05 12:00] VITALS: BP 109/60
[2018-12-05 16:00] VITALS: BP 112/65
[2018-12-05 20:00] VITALS: BP 100/63
[2018-12-06] VITALS (8 sets, daily range): BP systolic 116–140; BP diastolic 63–82
[2018-12-06 05:27] LABS: INR 1.18; PROTHROMBIN TIME 14.7 SECONDS (11.8-14.0)
[2018-12-06] MEDS: SLF 3 ML SYR IV SCH ×3 (06:39→21:51)
[2018-12-06 08:33] LABS: CALCIUM LEVEL 8.5 MG/DL (8.8-10.2); CREATININE FOR GFR 1.35 MG/DL (0.70-1.30); GLOMERULAR FILTRATION RATE 55.2 (>42); POTASSIUM SERUM 4.9 MEQ/L (3.5-5.1)
[2018-12-06 08:35] LABS: HEMOGLOBIN 15.5 g/dl (13.5-17.5); MEAN CORPUSCULAR HEMOGLOBIN 33.3 pg (27.0-33.0); MEAN CORPUSCULAR VOLUME 101.1 fl (80.0-96.0); PLATELET COUNT, AUTOMATED 169 10^3/uL (150-450); RED BLOOD COUNT 4.65 10^6/uL (4.30-6.10); WHITE BLOOD COUNT 5.9 10^3/uL (4.0-10.0)
[2018-12-06] MEDS: ENTRESTO 24-26MG TABLET (SACUBITRIL/VALSARTAN) PO SCH ×2 (09:10→21:51)
[2018-12-06] MEDS: FOLIC ACID 1 MG TAB PO SCH (09:11)
[2018-12-06] MEDS: APIXABAN 5 MG TAB (ELIQUIS) PO SCH ×2 (09:11→21:51)
[2018-12-06] MEDS: SPIRONOLACTONE 25 MG TAB PO SCH (09:11)
[2018-12-06] MEDS: FUROSEMIDE 40 MG TAB PO SCH (09:11)
[2018-12-06] MEDS: THIAMINE 100 MG TAB PO SCH ×2 (09:11→21:51)
[2018-12-06] MEDS: DIGOXIN 0.25 MG TAB PO SCH (09:11)
[2018-12-06] MEDS: METOPROLOL SUCC (TopROL XL) 100MG *XL* TAB PO SCH ×2 (09:19→21:51)
--- NOTE | 2018-12-06 13:16 | IPNPDOC ---
Subjective Date Seen The patient was seen on 12/06/18. Subjective Chief Complaint/HPI Patient seen and examined at bedside. Reports continued improvement of his lower extremity edema and respiratory status. States that he has been walking around in his room without any acute complaints. Objective Physical Examination General Exam: Positive: Alert, Cooperative, No Acute Distress ENT Exam: Positive: Atraumatic, Mucous membr. moist/pink Chest Exam: Positive: Diminished; Negative: Rales, Wheezing Heart Exam: Positive: Rate Normal, Normal S1, Normal S2 Abdomen Exam: Positive: Soft; Negative: Tenderness Extremity Exam: Positive: Swelling (1+ pitting edema in the LE B/L); Negative: Tenderness Psych Exam: Positive: Oriented x 3 Assessment /Plan Plan/VTE VTE Prophylaxis Ordered?: Yes Plan Decompensated systolic congestive heart failure (EF of 20%) - possibly 2/2 cardiomyopathy from underlying uncontrolled A-fib, alcohol use ECHO 11/30: EF 20%, unable to evaluate diastolic function, severe LA dilation, IVC pressure of 20mmHg, moderate MR, No or AR, tiny pericardial effusion Duplex US of bilateral LE 11/28: Negative for DVT Cont strict ins and outs, daily weights, head of bed elevation and fluid restrictions of 1700 cc Cont Lasix, Spironolactone, Entresto, Metoprolol A. fib s/p RVR Cont metoprolol succinate at 100 q12h Anticoagulation with Eliquis Telemetry monitoring Cardiomyopathy - likely 2/2 dilated - 2/2 EtOH, uncontrolled A-Fib, possibly ischemic 2/2 CAD Cont Metoprolol, Lasix, Entresto, Spironolactone Patient has declined cardiac catheterization / possible AICD placement - patient does not wish to pursue any intervention; risks, benefits, and alternative options discussed at length with the patient. He has verbalized understanding of the same, and does not want any further medical therapy aside from the aforementioned. CKD3 / Elevated Cr - possibly 2/2 cardiorenal syndrome Unknown baseline serum Cr Renal ultrasound 11/28: cortical thinning noted, no evidence of hydronephrosis Cont diuretic therapy as ordered HTN Metoprolol tartrate, Entresto, Furosemide and Spironolactone Emphysema Xopenex PRN Failure to see a physician in 3-5 years A1c consistent with pre-diabetes Lipid panel noted DVT prophylaxis On Eliquis Code status: DNR / DNI Disposition: Will continue with medical optimization VS, I&O, 24H, [facility] Vital Signs/I&O Vital Signs Date Time Temp Pulse Resp B/P (MAP) Pulse Ox O2 Delivery O2 Flow Rate FiO2 12/06/18 10:00 97.1 95 17 124/78 (93) 96 I&O- Last 24 Hours up to 6 AM 12/06/18 06:00 Intake Total 480 ml Output Total 775 ml Balance -295 ml Laboratory Data 24H LABS Laboratory Tests 2 12/06/18 04:59: Nucleated Red Blood Cells % (auto) 0.0, Prothrombin Time 14.7H, Prothromb Time International Ratio 1.18, Anion Gap 5L, Glomerular Filtration Rate 55.2, Blood Urea Nitrogen 22H, Creatinine 1.35H, Sodium Level 140, Potassium Level 4.9#, Chloride Level 103, Carbon Dioxide Level 32, Calcium Level 8.5L CBC/BMP Laboratory Tests 12/06/18 04:59 Red Blood Count 4.65, Mean Corpuscular Volume 101.1 H, Mean Corpuscular Hemoglobin 33.3 H, Mean Corpuscular Hemoglobin Concent 33.0, Red Cell Distribution Width 14.4, Calcium Level 8.5 L Microbiology Microbiology 11/28/18 Blood Culture - Final, Complete NO GROWTH AFTER 5 DAYS 11/28/18 Blood Culture - Final, Complete NO GROWTH AFTER 5 DAYS KENNEDY BROOKS MD Dec 06, 2018 13:16
[2018-12-07] VITALS: BP 156/70
[2018-12-07 04:00] VITALS: BP 115/81
[2018-12-07 05:12] LABS: HEMOGLOBIN 15.7 g/dl (13.5-17.5); MEAN CORPUSCULAR HEMOGLOBIN 32.6 pg (27.0-33.0); MEAN CORPUSCULAR HGB CONC 33.4 g/dl (32.0-36.5); MEAN CORPUSCULAR VOLUME 97.5 fl (80.0-96.0); PLATELET COUNT, AUTOMATED 179 10^3/uL (150-450); RED BLOOD COUNT 4.82 10^6/uL (4.30-6.10); WHITE BLOOD COUNT 5.7 10^3/uL (4.0-10.0)
[2018-12-07 05:35] LABS: CALCIUM LEVEL 8.4 MG/DL (8.8-10.2); CREATININE FOR GFR 1.35 MG/DL (0.70-1.30); GLOMERULAR FILTRATION RATE 55.2 (>42); POTASSIUM SERUM 4.6 MEQ/L (3.5-5.1)
[2018-12-07] MEDS: SLF 3 ML SYR IV SCH (06:44)
[2018-12-07 08:00] VITALS: BP 123/77
[2018-12-07] MEDS: THIAMINE 100 MG TAB PO SCH (08:58)
[2018-12-07] MEDS: FUROSEMIDE 40 MG TAB PO SCH (08:58)
[2018-12-07] MEDS: APIXABAN 5 MG TAB (ELIQUIS) PO SCH (08:58)
[2018-12-07] MEDS: SPIRONOLACTONE 25 MG TAB PO SCH (08:58)
[2018-12-07] MEDS: FOLIC ACID 1 MG TAB PO SCH (08:58)
[2018-12-07] MEDS: ENTRESTO 24-26MG TABLET (SACUBITRIL/VALSARTAN) PO SCH (08:58)
[2018-12-07 08:59] VITALS: BP 123/77
[2018-12-07] MEDS: METOPROLOL SUCC (TopROL XL) 100MG *XL* TAB PO SCH (08:59)
[2018-12-07] MEDS ORDERED: ENTR1TAB PO (11:04)
[2018-12-07] MEDS ORDERED: ASPI81TA85 PO (11:04)
[2018-12-07] MEDS ORDERED: FURO40TA2 PO (11:04)
[2018-12-07] MEDS ORDERED: ALDA25TA2 PO (11:04)
[2018-12-07] MEDS ORDERED: METO1TAB33 PO (11:04)
--- NOTE | 2018-12-07 12:39 | DS.PDOC ---
Discharge Summary General Date of Admission Nov 28, 2018 at 16:48 Date of Discharge 12/07/18 Discharge Summary PROCEDURES PERFORMED DURING STAY: None. ADMITTING/DISCHARGE DIAGNOSES: Decompensated systolic congestive heart failure (EF of 20%) - possibly 2/2 cardiomyopathy from underlying uncontrolled A-fib, alcohol use Newly onset/diagnosed Atrial fibrillation Cardiomyopathy - likely 2/2 dilated - 2/2 EtOH, uncontrolled A-Fib, possibly ischemic 2/2 CAD Chronic kidney disease stage III Hypertension Alcohol/tobacco use COMPLICATIONS/CHIEF COMPLAINT: A Fib With Rbr. HISTORY OF PRESENT ILLNESS: . 73-year-old male with a PMHx of Emphysema and HTN who has not seen a physician in over 3-5 years presented to the ER with a chief complaint of shortness of breath for about 3 weeks duration. When his family had seen him, they strongly recommended that he go to the emergency room for further evaluation. Patient went to the emergency room, was found to be in A. fib with RVR as well as signs of fluid overload suspected to be from heart failure. Patient was transferred from [facility] to [facility] for further evaluation and treatment. Decompensated systolic congestive heart failure (EF of 20%) - possibly 2/2 cardiomyopathy from underlying uncontrolled A-fib, alcohol use ECHO 11/30: EF 20%, unable to evaluate diastolic function, severe LA dilation, IVC pressure of 20mmHg, moderate MR, No or AR, tiny pericardial effusion Duplex US of bilateral LE 11/28: Negative for DVT Cont strict ins and outs, daily weights, head of bed elevation and fluid restrictions of 1700 cc Cont Lasix, Spironolactone, Entresto, Metoprolol A. fib s/p RVR Cont metoprolol Anticoagulation with Eliquis Telemetry monitoring Cardiomyopathy - likely 2/2 dilated - 2/2 EtOH, uncontrolled A-Fib, possibly ischemic 2/2 CAD Cont Metoprolol, Lasix, Entresto, Spironolactone Patient has declined cardiac catheterization / possible AICD placement - patient does not wish to pursue any intervention; risks, benefits, and alternative options discussed at length with the patient. He has verbalized understanding of the same, and does not want any further medical therapy aside from the aforementioned. CKD3 / Elevated Cr - possibly 2/2 cardiorenal syndrome Unknown baseline serum Cr Renal ultrasound 11/28: cortical thinning noted, no evidence of hydronephrosis Cont diuretic therapy as ordered HTN Metoprolol tartrate, Entresto, Furosemide and Spironolactone Emphysema Xopenex PRN Failure to see a physician in 3-5 years A1c consistent with pre-diabetes Lipid panel noted Alcohol/tobacco abuse Patient counseled at length to abstain from significant alcohol usage. The patient endorsed that he had been drinking two 30 pack cases of beer a week. He also states that he drank a few quarts of curtis a week. In addition, he smokes 1 pack per day as well. DISCHARGE MEDICATIONS: Please see below. ALLERGIES: Please see below. PHYSICAL EXAMINATION ON DISCHARGE: VITAL SIGNS: Please see below. General Exam: Positive: Alert, Cooperative, No Acute Distress ENT Exam: Positive: Atraumatic, Mucous membr. moist/pink Chest Exam: Positive: Diminished; Negative: Rales, Wheezing Heart Exam: Positive: Rate Normal, Normal S1, Normal S2 Abdomen Exam: Positive: Soft; Negative: Tenderness Extremity Exam: Positive: Swelling (trace pitting edema in the LE B/L); Negative: Tenderness Psych Exam: Positive: Oriented x 3 LABORATORY DATA: Please see below. IMAGING: DATE OF STUDY: 11/29/2018 REFERRING PHYSICIAN: Dr. Tomeka García INDICATION: Atrial fibrillation, heart failure unspecified. HEIGHT: 185 cm. WEIGHT: 111 kg. DESCRIPTION: Rhythm was atrial fibrillation with rapid ventricular response. Image quality was fair. This was a 2D, M mode, color flow Doppler and pulse wave Doppler examination and included mitral annular tissue Doppler. 2D MEASUREMENTS: Aortic root 3.2 cm Left atrium 4.7 cm Left atrial volume index 44 Left ventricle diastole 6.4 cm Ventricular septum 0.95 cm Posterior wall 1.00 cm Inferior vena cava 3.0 cm DOPPLER MEASUREMENTS: Aortic valve velocity 196 cm/s LVOT velocity 55.4 cm/s LVOT VTI 10.4 cm No aortic regurgitation. Moderate mitral regurgitation. Moderate tricuspid regurgitation. Estimated right ventricle systolic pressure at least 38 mmHg assuming a right atrial pressure of at least 20 mmHg based on inferior vena cava dilatation with marked reduction of respiratory variation. CONCLUSIONS: 1. Mildly dilated left ventricle and diastole with normal LV wall thickness. Severe global LV hypokinesis and paradoxical septal motion. Severe reduction in overall LV systolic function. LVEF 20% by visual estimate. Unable to properly assess LV diastolic function in the setting of atrial fibrillation. 2. Mildly dilated right ventricle with severe reduction in RV systolic function and severe global hypokinesis of right ventricle contraction. Moderate right atrial dilatation. Prominent moderator band of the right ventricle. Structurally normal tricuspid leaflets with moderate tricuspid regurgitation. Suggestive of at least mild estimated right ventricle systolic pressure elevation. 3. Severe left atrial dilatation by left atrial volume index. 4. Inferior vena cava plethora with marked reduction of respiratory variation suggestive of a central venous pressure of at least 20 mmHg. 5. Mild mitral annular calcification. No mitral stenosis. Moderate mitral regurgitation. 6. Moderate aortic valve sclerosis of a three-cuspid aortic valve. No aortic stenosis or regurgitation. 7. Tiny pericardial effusion without diastolic chamber collapse. HISTORY: Dyspnea. COMPARISON: None. The technique utilized in obtaining the radiograph has magnified the cardiac silhouette and accentuated the interstitial markings. There is global cardiomegaly. There are bilateral basilar opacities with costophrenic and cardiophrenic angle blunting. There is evidence of pulmonary vascular redistribution on this semi upright portable exam. The osseous structures are within normal limits. IMPRESSION: 1. Cardiomegaly accentuated by technique. 2. Bibasilar opacity suspicious for subsegmental atelectatic change/pneumonia/effusion. Correlate clinically. Obtain PA and lateral views of the chest. HISTORY: Pain and swelling. TECHNIQUE: Multiple ultrasonographic images of the deep venous structures of the bilateral thighs were obtained from the common femoral vein to the popliteal vein along with Doppler interrogation and color flow Doppler images. FINDINGS: There is no abnormal echogenic material seen within any of the visualized deep venous structures that would suggest acute thrombosis. Coaptation is unremarkable throughout. Doppler interrogation shows an expected response to respiratory variability and augmentation. The color flow images show what appears to be a normal vascular pattern throughout. IMPRESSION: There is no ultrasonographic evidence of deep venous thrombosis involving any of the visualized deep venous structures of the bilateral thighs, as described above. HISTORY: Assess for hydronephrosis. COMPARISON: None. The right kidney measures 11.7 x 4.3 x 4.2 cm and the left measures 11.2 x 4.4 x 5.6 cm. There is slight bilateral renal cortical thinning with slightly increased renal cortical echoes, but good cortical medullary differentiation. There is no hydronephrosis on either side. There are no cystic or solid masses. The technologist has given a gross estimate of the size of the prostate gland by transvesical ultrasound. It measured 3 x 3.3 x 4.4 cm. This is a gross estimate and does not suffice for an exact measurement as a transrectal prostate evaluation would. The volume calculation from that measurement is 22.8 mL. The significance of this is uncertain. IMPRESSION: Slight renal changes suggesting early age-related change or medical renal disease. This needs to be correlated clinically. PROGNOSIS: Poor long-term prognosis ACTIVITY: As tolerated. DIET: 2 g low sodium diet, 1700 mL fluid restricted diet DISCHARGE PLAN: DISPOSITION: 01 Home, Self-Care. DISCHARGE INSTRUCTIONS: Follow-up with primary care physician as scheduled. Abstain from alcohol/tobacco abuse. Take medications as prescribed. Return to the ER for any acute emergencies. DISCHARGE CONDITION: Stable. TIME SPENT ON DISCHARGE: Greater than 30 minutes. Vital Signs/I&Os Vital Signs Date Time Temp Pulse Resp B/P (MAP) Pulse Ox O2 Delivery O2 Flow Rate FiO2 12/07/18 08:59 72 123/77 12/07/18 08:00 97.0 20 97 I&O- Last 24 Hours up to 6 AM 12/07/18 06:00 Intake Total 840 ml Output Total 1400 ml Balance -560 ml Laboratory Data Labs 24H Laboratory Tests 2 12/07/18 05:00: Nucleated Red Blood Cells % (auto) 0.0, Anion Gap 8, Glomerular Filtration Rate 55.2, Blood Urea Nitrogen 25H, Creatinine 1.35H, Sodium Level 139, Potassium Level 4.6, Chloride Level 104, Carbon Dioxide Level 27, Calcium Level 8.4L CBC/BMP Laboratory Tests 12/07/18 05:00 Red Blood Count 4.82, Mean Corpuscular Volume 97.5 H, Mean Corpuscular Hemoglobin 32.6, Mean Corpuscular Hemoglobin Concent 33.4, Red Cell Distribution Width 14.0, Calcium Level 8.4 L Microbiology Microbiology 11/28/18 Blood Culture - Final, Complete NO GROWTH AFTER 5 DAYS 11/28/18 Blood Culture - Final, Complete NO GROWTH AFTER 5 DAYS Discharge Medications Scheduled Apixaban (Eliquis) 5 Mg Tablet, 5 MG PO BID Aspirin (Aspir 81) 81 Mg Tablet.dr, 1 TAB PO DAILY for pain Furosemide (Furosemide) 40 Mg Tablet, 40 MG PO DAILY Metoprolol Succinate (Metoprolol Succinate) 100 Mg Tab.er.24h, 1 TAB PO DAILY Sacubitril/Valsartan (Entresto 24 mg-26 mg Tablet) 1 Each Tablet, 1 TAB PO BID Spironolactone (Aldactone) 25 Mg Tablet, 25 MG PO QAM Allergies Coded Allergies: No Known Allergies (Unverified , 11/28/18) KENNEDY BROOKS MD Dec 07, 2018 12:39
== END 2018-12-07 12:30 | disposition home or self-care (01) | DRG 291 ==
LOC: M PCU 16:48
PROVIDERS: ADMIT Family Medicine; ATTEND Internal Medicine
DX: I13.0 Hypertensive heart and chronic kidney disease with heart failure and stage 1 through stage 4 chronic kidney disease, or unspecified chronic kidney disease (principal); I50.21 Acute systolic (congestive) heart failure; E87.2 Acidosis; N18.3 Chronic kidney disease, stage 3 (moderate); F10.10 Alcohol abuse, uncomplicated; F17.200 Nicotine dependence, unspecified, uncomplicated; I48.91 Unspecified atrial fibrillation; J43.9 Emphysema, unspecified; Z79.01 Long term (current) use of anticoagulants; Z79.899 Other long term (current) drug therapy; E83.42 Hypomagnesemia; Z66 Do not resuscitate; I42.6 Alcoholic cardiomyopathy